=== PATIENT | female | born 1935 | race Caucasian/White ===

== ENCOUNTER 2020-04-27 20:42 | Inpatient (IN) | payer MEDICARE, OTHER ==
[~2020-04-27 20:42] MED LIST: Iopamidol-370 76% 500 ML 1 ML ONE
[2020-04-27 21:36] LABS: Bacteria/HPF 4+ HPF (None Seen); Bilirubin Negative (Negative); Blood, Urine 2+ (Negative); Clarity Extra Turbid (Clear); Glucose, Urine (Dipstick) Normal (Negative); Ketone, Urine Negative (Negative); Leukocyte 500 Leu/uL (Negative); Nitrite Negative (Negative); Protein, Urine (Dipstick) 50 mg/dL (Neg-Trace); RBC/HPF 21-50 HPF (0-3); Specific Gravity, Urine 1.011 (1.002-1.036); Squamous Epithelial 0-3 HPF (0-3); Urobilinogen Normal mg/dL (Less than 2); WBC/HPF Greater than 50 HPF (0-3); pH, Urine 5.5 (5.0-9.0)
[2020-04-27] MEDS ORDERED: cefTRIAXone\\ROCEPHIN 2 GM VIAL ONE (22:04)
[2020-04-27 22:46] LABS: Band 33 % (5-11); Hemoglobin 11.3 g/dL (12.0-16.0); Lymphocytes 6 % (21-51); MDiff Complete? YES; Mean Corpuscular HGB CONC 34.5 g/dL (32.0-36.0); Mean Corpuscular Hemoglobin 31.8 pg (27.0-31.0); Mean Platelet Volume 7.9 fL (7.4-10.4); Monocytes 1 % (0-10); Neutrophil 60 % (42-75); Platelet Count 179 thou/uL (130-400); RBC Distribution Width 12.6 % (11.5-14.5); Red Blood Cell (RBC) Count 3.54 mill/uL (4.20-5.40); White Blood Cell (WBC) Count 17.4 thou/uL (4.8-10.8)
[2020-04-27 22:57] LABS: ALT (SGPT) 22 U/L (8-55); AST (SGOT) 32 U/L (5-34); Albumin 3.5 g/dL (3.4-4.8); Alkaline Phosphatase 122 U/L (40-110); Anion Gap 13 mmol/L (10-20); BUN (Urea Nitrogen) 14 mg/dL (9.8-20.1); Calc. Creatinine Clearance 0 mL/min (70-130); Calcium 8.1 mg/dL (7.8-10.44); Carbon Dioxide 20 mmol/L (23-31); Chloride 109 mmol/L (98-107); Estimated GFR-MDRD 41; Globulin 2.6 g/dL (2.4-3.5); Glucose 113 mg/dL (83-110); Lipase 35 U/L (8-78); Potassium 3.2 mmol/L (3.5-5.1); Protein, Total 6.1 g/dL (6.0-8.3); Sodium 139 mmol/L (136-145)
--- NOTE | 2020-04-27 23:32 | CT ---
CT abdomen and pelvis: 04/27/2020 COMPARISON: 05/25/2015 HISTORY: Left-sided flank pain, pain with urination TECHNIQUE: Axial CT imaging at 5 mm intervals from the lung bases through the pubic symphysis with IV contrast. Coronal and sagittal reformatted imaging obtained. FINDINGS: There is mild increased linear density in bilateral lung bases. No free intraperitoneal air or fluid is seen. The liver is relatively hypodense, suggesting a degree of steatosis. Calcified stones are noted withi n the gallbladder. Splenic granulomata are present. The pancreas and adrenal glands are unremarkable. There is perinephric stranding and hydroureteronephrosis on the left consistent with ob structive uropathy. There is an exophytic cyst emanating from the midpole of the left kidney measuring 3.2 cm. There is a punctate intrarenal calculus within the lower pole of the left kidney. T here is a distal obstructing stone within the left ureter on coronal image 74 measuring 8 mm in craniocaudal dimension. There is a second irregular stone just superior to this also within the dista l left ureter measuring approximately 7 mm on coronal image 76. The right kidney appears grossly unremarkable with no evidence for right-sided obstructive uropathy. Diverticulosis of the sigmoid colon noted with no evidence for diverticulitis. No evidence for bowel inflammatory change or bowel obstruction. There is atherosclerotic calcification of the abdominal aorta and its branches. No abdominal or pelvic lymphadenopathy is seen. Small volume gas noted within the urinary bladder may signify fistulous communication with bowel or prior instrumentation. Review of the osseous structures demonstrates no worrisome lytic or blastic bone lesion. Multilevel l ower lumbar spine degenerative change present. IMPRESSION: Obstructive uropathy on the left secondary to multiple distal left ureteral calculi. Js tional incidental findings as detailed above.
[2020-04-28 01:43] LABS: Lactic Acid 1.3 mmol/L (0.5-2.2)
[2020-04-28] MEDS ORDERED: HYDROcodone/Acetaminophen 5/325 mg Tablet ONE (01:50)
[2020-04-28] MEDS ORDERED: Morphine 2 MG/ML SYRINGE ONE ×2 (02:15→05:25)
[2020-04-28] MEDS ORDERED: Ondansetron PF 4 MG/2 ML Vial ONE ×2 (05:23→05:25)
[2020-04-28] MEDS ORDERED: Acetaminophen 325 MG TAB ONE ×2 (05:24→05:25)
[2020-04-28] MEDS ORDERED: Morphine 2 MG/ML VIAL ONE (05:30)
--- NOTE | 2020-04-28 06:10 | HP ---
REASON FOR ADMISSION: Left flank pain. HISTORY OF PRESENT ILLNESS: This is an 84-year-old female patient, who developed left flank pain 24 hours before her presentation to the emergency room. She describes it as sharp in nature, radiating to her left lower inguinal area. Initially, the pain was mild to moderate, then progressed to severe and it was associated with episodes of chills, decreased urination, and severe burning upon urination. She tried to take hot water baths that initially relaxed her, but then the episodes of chills became intense and she started vomiting, she vomited six times. She presented to the ER and was diagnosed with kidney stone. The patient did have a kidney stone a couple of months before on the right side, but this time, she said that the pain is more intense than the previous episode. PAST MEDICAL HISTORY: 1. Right-sided kidney stones. 2. Lymphoma with bowel involvement, status post multiple surgeries. 3. Paroxysmal atrial fibrillation. 4. High blood pressure. SOCIAL HISTORY: She does not smoke. Does not drink alcohol. FAMILY HISTORY: Reviewed, found to be noncontributory. REVIEW OF SYSTEMS: All systems reviewed except for the above mentioned, found to be negative. ALLERGIES: NO NOTE OF ANY DRUG ALLERGY. PHYSICAL EXAMINATION: GENERAL: Awake, alert, oriented, does not appear in distress. VITAL SIGNS: Her blood pressure is 100/60, heart rate of 100, saturating 98% on room air, and T-max of 99.9. HEENT: Head is nontraumatic and normocephalic. Pupils are equal and reactive. Extraocular movements are intact. Nonicteric sclerae. Well injected conjunctivae. Oral mucosa normal. Nasal mucosa normal. NECK: Supple. No adenopathy. No murmur. Thyroid is not palpable. Trachea is midline. No supraclavicular lymphadenopathy. HEART: S1 and S2, irregular. No murmurs. No gallops. No friction rubs. No displacement of PMI. LUNGS: Clear to auscultation bilaterally. No wheezes, rhonchi, or crackles. ABDOMEN: Bowel sounds are positive. Slight tenderness on palpation of the left lower quadrant area, but overall the abdomen is soft. No lower extremity edema. No cyanosis noted. NEUROLOGIC: Cranial nerves 2 through 12 within normal limits. Normal motor function. No sensory function. Normal reflexes. LABORATORY DATA: Blood work shows a WBC of 17.4, hemoglobin of 11.3, platelets 179, bands of 33. Lactic acid 2.3. Sodium of 139, potassium 3.2, bicarb of 20, creatinine 1.25. CT of the abdomen and pelvis shows kidney stone, pyelonephritis. EKG shows rapid atrial fibrillation. ASSESSMENT AND PLAN: This is an 84-year-old female patient presenting with pyelonephritis secondary to kidney stone. In the emergency room, she was noted to be tachycardic and rapid atrial fibrillation, required to be on Cardizem drip and currently still on it. She told me that every time she has kidney stone, she develops atrial fibrillation. She had her first episode when she was diagnosed with lymphoma. Cardiac: The patient is in rapid atrial fibrillation and currently on telemetry and on Cardizem drip. Her heart rate is acceptably controlled. She feels much better than 24 hours ago. We will hold her antihypertensive agent since she is on Cardizem and her blood pressure is borderline low. Urology: The patient does have kidney stone and pyelonephritis. She is septic. She received a dose of IV Rocephin. We will continue with that. Awaiting results of her urine culture and sensitivity, Urology was consulted and they will see her and most likely insert a stent. She will be on aggressive fluid hydration. We will recheck her labs and replace her electrolytes accordingly. Her Eliquis will be held since she will undergo a procedure. For DVT prophylaxis, she will be on SCDs. I did discuss with her code status, she wishes to be a full code. Job ID: [id number]
[2020-04-28] MEDS ORDERED: Diltiazem 125 MG in Sodium Chloride 0.9% 100 ML IVPB SCH (08:00)
[2020-04-28] MEDS ORDERED: Morphine 2 MG/ML VIAL SLOW IVP PRN (08:08)
[2020-04-28] MEDS ORDERED: Acetaminophen 325 MG TAB PO PRN (08:09)
[2020-04-28 09:15] LABS: Anion Gap 19 mmol/L (10-20); BUN (Urea Nitrogen) 13 mg/dL (9.8-20.1); Calc. Creatinine Clearance 0 mL/min (70-130); Calcium 8.1 mg/dL (7.8-10.44); Carbon Dioxide 16 mmol/L (23-31); Chloride 110 mmol/L (98-107); Estimated GFR-MDRD 35; Glucose 106 mg/dL (83-110); Potassium 3.8 mmol/L (3.5-5.1); Sodium 141 mmol/L (136-145)
[2020-04-28] MEDS ORDERED: Vancomycin 1 GM in Premix Bag 1 BAG IVPB SCH (10:00)
[2020-04-28] MEDS ORDERED: PHENYLEPHRINE-NS 100 MCG/ML 10 ML SYRINGE ONE (10:21)
[2020-04-28] MEDS ORDERED: Lidocaine 1% PF 5 ML VIAL ONE (10:21)
[2020-04-28] MEDS ORDERED: EPHEDRINE 25 MG/5 ML SYRINGE ONE (10:21)
[2020-04-28] MEDS ORDERED: PROPOFOL 200 MG/20 ML VIAL ONE (10:21)
[2020-04-28] MEDS: Sodium Chloride 0.9% 1,000 ML IV SCH ×2 (10:36→16:26)
[2020-04-28] MEDS ORDERED: Amiodarone 450 MG in Dextrose 5% in Water 250 ML IVPB SCH (10:45)
[2020-04-28 10:47] LABS: Hemoglobin 11.7 g/dL (12.0-16.0); Manual Diff?? YES; Mean Corpuscular HGB CONC 32.3 g/dL (32.0-36.0); Mean Corpuscular Hemoglobin 30.5 pg (27.0-31.0); Mean Corpuscular Volume 94.7 fL (78.0-98.0); Mean Platelet Volume 8.4 fL (7.4-10.4); Platelet Count 153 thou/uL (130-400); RBC Distribution Width 13.1 % (11.5-14.5); Red Blood Cell (RBC) Count 3.82 mill/uL (4.20-5.40); White Blood Cell (WBC) Count 8.4 thou/uL (4.8-10.8)
[2020-04-28 10:48] LABS: Band 42 % (5-11); Lymphocytes 8 % (21-51); MDiff Complete? YES; Monocytes 2 % (0-10); Neutrophil 48 % (42-75); Platelet Morphology Comment Appears Adequate
--- NOTE | 2020-04-28 10:53 | PDOC.BPN ---
- Brief Progress Note Encounter Date: 04/28/20 Encounter Time: 08:00 afib w/ RVR HR 110-120s, BP 80s/40s; stopped cardizem, started amiodarone; complicated UTI with obstructive uropathy, started vanc and carli, placed ruiz pending urology evaluation
[2020-04-28 12:23] VITALS: BMI 26.4
[2020-04-28] MEDS: MEROPENEM 1 GM/50 ML 1 GM in Premix Bag 1 BAG IVPB SCH (12:56)
[2020-04-28] MEDS ORDERED: Metoprolol Tartrate 25 MG TAB PO SCH (13:30)
[2020-04-28 13:41] LABS: Bacteria/HPF 1+ HPF (None Seen); Bilirubin Negative (Negative); Blood, Urine 3+ (Negative); Clarity Extra Turbid (Clear); Glucose, Urine (Dipstick) Normal (Negative); Ketone, Urine Negative (Negative); Leukocyte 500 Leu/uL (Negative); Nitrite Negative (Negative); Protein, Urine (Dipstick) 50 mg/dL (Neg-Trace); Specific Gravity, Urine 1.044 (1.002-1.036); Squamous Epithelial None Seen HPF (0-3); Urobilinogen Normal mg/dL (Less than 2); WBC/HPF Greater than 50 HPF (0-3); pH, Urine 5.5 (5.0-9.0)
[2020-04-28] MEDS ORDERED: MEROPENEM 1 GM/50 ML 1 GM in Premix Bag 1 BAG IVPB SCH (14:00)
[2020-04-28] MEDS ORDERED: Meropenem 1 GM in Sodium Chloride 0.9% 100 ML IVPB SCH (14:00)
[2020-04-28] MEDS: Polyethylene Glycol OPTH DROP 15 ML BOT EA EYE SCH ×2 (16:25→22:56)
[2020-04-28 16:44] LABS: SARS-CoV-2 MS2 Positive; SARS-CoV-2 N Gene Negative; SARS-CoV-2 S Gene Negative; SARS-CoV-2 by NAA Not Detected (NotDetected); SARS-CoV-2 orf1ab Negative
[2020-04-28] MEDS ORDERED: Fentanyl 100 MCG/2 ML VIAL ONE (17:13)
[2020-04-28] MEDS ORDERED: Iothalamate Meglumine 60% 50 ML VIAL FS ONE (17:29)
[2020-04-28] MEDS ORDERED: Promethazine HCl 25 MG/ML VIAL IM PRN ×2 (17:31→19:01)
[2020-04-28] MEDS ORDERED: Ondansetron HCl/PF 4 MG/2 ML Vial IVP PRN ×2 (17:31→19:01)
[2020-04-28] MEDS ORDERED: Promethazine HCl 25 MG/ML VIAL SLOW IVP PRN ×2 (17:31→19:01)
--- NOTE | 2020-04-28 18:58 | RAD ---
Retrograde pyelogram: 04/28/2020 HISTORY: Stent placement FINDINGS: Numerous images from a left-sided retrograde pyelogram provided. Images demonstrate placeme nt of a left double-J ureteral stent. Filling defects are seen within the distal ureter on initial imaging consistent with the patient's history of multiple distal left ureteral calculi noted on the CT exam. IMPRESSION: Left retrograde pyelogram as above.
--- NOTE | 2020-04-28 20:00 | CON ---
DATE OF CONSULTATION: 04/28/2020 REASON FOR CONSULTATION: Left ureteral stones, fever. HISTORY OF PRESENT ILLNESS: Ms. Hoang is an 84-year-old female with prior history of stone disease. She presented to [facility] on 04/27/2020, complaining of left-sided flank pain. After admission, she was noted to be febrile. She also admitted to some subjective fever prior to admission. Evaluation in the emergency room included CT scan, which demonstrated distal left ureteral stones with proximal hydroureter and hydronephrosis. She underwent additional evaluation, which included urine and blood testing. Her urinalysis revealed 4+ bacteria and her white blood cell count was 17.4. She was hydrated in the emergency room and IV antibiotics were initiated. In addition, cultures were obtained. She developed abnormal heart rhythm in the emergency room and states that this happens when she gets stones. Her last stone episode was early this year in November and she did undergo ureteroscopy at that time in [place]. PAST MEDICAL HISTORY: 1. Abnormal heart rhythm. 2. Kidney stone disease. 3. Lymphoma involving the bowel. PAST SURGICAL HISTORY: Includes; 1. Abdominal surgery for lymphoma. 2. Right ureteroscopy with laser lithotripsy in [place]. SOCIAL HISTORY: She is a nonsmoker. Denies excessive alcohol use. MEDICATIONS: Please see hospital chart. ALLERGIES: NO KNOWN DRUG ALLERGIES. PHYSICAL EXAMINATION: GENERAL: She is awake, alert, in no distress. HEENT: Normocephalic, atraumatic. NECK: Supple without masses. CHEST: Clear to auscultation. CARDIOVASCULAR: Tachycardia. ABDOMEN: Soft. No peritoneal signs. EXTREMITIES: No edema. IMPRESSION: Ms. Hoang is an 84-year-old female with signs and symptoms of obstructive pyelonephritis. I have recommended ureteral stent placement to be done if this is possible. She is on IV antibiotics and her blood and urine are undergoing culture analysis. I have discussed the procedure with the patient. She understands the procedure, potential limitations, alternatives, and complications. She does wish to proceed. PLAN: Cystoscopy, left double-J stent placement. Job ID: [id number]
--- NOTE | 2020-04-28 20:28 | OP ---
DATE OF PROCEDURE: 04/28/2020 PREOPERATIVE DIAGNOSES: Left ureteral stones, urinary tract infection. POSTOPERATIVE DIAGNOSES: Left ureteral stones, urinary tract infection. PROCEDURES PERFORMED: Cystoscopy, left ureteroscopy, left ureteral stent placement. ANESTHESIA: General. INDICATIONS: Ms. Shawnee Hoang is an 84-year-old female with prior history of stone disease. She presented to the emergency room with fever, chills, left flank pain, and urinalysis demonstrating bacteria. She was admitted and given IV antibiotic therapy. CT scan demonstrated distal left ureteral stones. She was brought to the operating room for cystoscopy and stent placement. DESCRIPTION OF PROCEDURE: The patient was given general anesthesia and IV antibiotics had been initiated on the time of admission. She was sterilely prepped and draped in the lithotomy position. Cystoscope was passed into the bladder. The left ureteral orifice was identified, and with some difficulty, a guidewire was passed cephalad under fluoroscopic control. A rigid ureteroscope was then used to ensure that the guidewire was in good position, and a wire was passed through the ureteroscope, ensuring that it was within the lumen of the left ureter. Retrograde pyelography confirmed good positioning of the guidewire. The ureteroscope was removed. Then a 4.8 x 24 double-J stent was passed over the guidewire and coiled in the left renal pelvis and in the bladder as determined fluoroscopically and cystoscopically. The bladder was drained. Matthews catheter was placed, she had one in when she was brought to the operating room. She tolerated the procedure well. She was transported from the operative room to recovery room in stable condition. COMPLICATION: None. ESTIMATED BLOOD LOSS: Minimal. Job ID: [id number]
[2020-04-28] MEDS ORDERED: cefTRIAXone\\ROCEPHIN 1 GM in Sodium Chloride 0.9% 100 ML IVPB SCH (22:00)
[2020-04-28] MEDS: Simvastatin 5 MG TAB PO SCH (22:55)
[2020-04-28] MEDS: Apixaban 5 MG TAB PO SCH ×2 (22:55→23:21)
[2020-04-28] MEDS: Diphenoxylate HCl/Atropine Tablet PO SCH (22:55)
[2020-04-28] MEDS: Metoprolol Tartrate 25 MG TAB PO SCH (22:55)
[2020-04-28] MEDS: Ondansetron PF 4 MG/2 ML Vial IVP PRN (23:52)
[2020-04-29] MEDS: MEROPENEM 1 GM/50 ML 1 GM in Premix Bag 1 BAG IVPB SCH (00:18)
[2020-04-29 04:34] LABS: Anion Gap 14 mmol/L (10-20); BUN (Urea Nitrogen) 18 mg/dL (9.8-20.1); Calc. Creatinine Clearance 41 mL/min (70-130); Carbon Dioxide 18 mmol/L (23-31); Chloride 111 mmol/L (98-107); Estimated GFR-MDRD 45; Potassium 3.5 mmol/L (3.5-5.1); Sodium 139 mmol/L (136-145)
[2020-04-29 04:35] LABS: Calcium 7.3 mg/dL (7.8-10.44); Glucose 112 mg/dL (83-110); Magnesium 1.4 mg/dL (1.6-2.6)
[2020-04-29] MEDS: Sodium Chloride 0.9% 1,000 ML IV SCH ×2 (06:37→19:15)
[2020-04-29] MEDS: Fish Oil 1,000 MG CAP PO SCH (10:13)
[2020-04-29] MEDS: Metoprolol Tartrate 25 MG TAB PO SCH ×2 (10:13→21:30)
[2020-04-29] MEDS: Diphenoxylate HCl/Atropine Tablet PO SCH ×2 (10:14→21:31)
[2020-04-29] MEDS: Apixaban 5 MG TAB PO SCH ×2 (10:14→21:31)
[2020-04-29] MEDS: Aspirin 81 mg Enteric Coated Tablet PO SCH (10:14)
[2020-04-29] MEDS: Polyethylene Glycol OPTH DROP 15 ML BOT EA EYE SCH ×3 (10:15→21:31)
[2020-04-29] MEDS: cefTRIAXone\\ROCEPHIN 1 GM in Sodium Chloride 0.9% 100 ML IVPB SCH (10:27)
[2020-04-29 10:56] LABS: Vancomycin, Random 5.7 ug/mL (See Comment)
[2020-04-29] MEDS ORDERED: Vancomycin 1 GM in Premix Bag 1 BAG IVPB SCH (11:00)
[2020-04-29] MEDS: Simethicone Chewable 80 MG TAB PO PRN (17:20)
--- NOTE | 2020-04-29 18:50 | PDOC.HOSPP ---
- Subjective Encounter Date: 04/29/20 Encounter Time: 09:00 Subjective: no overnight events. POD 1 s/p left ureteral stent placement, well tolerated. 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 otherwise no complaints. - Objective Vital Signs & Weight: Vital Signs (12 hours) Temp Pulse Resp BP BP Pulse Ox 04/29/20 15:52 96 04/29/20 15:32 98.3 F 99 20 135/65 96 04/29/20 11:58 97.8 F 91 17 130/73 95 04/29/20 10:03 99.5 F 103 H 16 125/59 L 96 Weight Weight 154 lb I&O: 04/28/20 04/29/20 04/30/20 06:59 06:59 06:59 Intake Total 1460 720 Output Total 400 Balance 1060 720 Result Diagrams: 04/28/20 05:21 04/29/20 03:42 Hospitalist ROS - Review of Systems Constitutional: denies: chills, sweats Respiratory: denies: cough, shortness of breath Cardiovascular: denies: chest pain, palpitations, orthopnea Gastrointestinal: reports: abdominal pain. denies: nausea, vomiting, diarrhea, melena, hematochezia - Medication Medications: Active Medications Generic Name Dose Route Start Last Admin Trade Name Albanq PRN Reason Stop Dose Admin Apixaban 5 mg 04/28/20 21:00 04/29/20 10:14 Apixaban 5 Mg Tab PO 5 mg BID FRAN Administration Aspirin 81 mg 04/29/20 09:00 04/29/20 10:14 Aspirin 81 Mg Enteric Coated Tablet PO 81 mg DAILY FRAN Administration Diphenoxylate HCl/Atropine 1 tab 04/28/20 21:00 04/29/20 10:14 Diphenoxylate Hcl/Atropine Tablet PO 1 tab BID FRAN Administration Fish Oil 2,000 mg 04/29/20 09:00 04/29/20 10:13 Fish Oil 1,000 Mg Cap PO 2,000 mg DAILY FRAN Administration Sodium Chloride 1,000 mls @ 100 mls/hr 04/28/20 08:15 04/29/20 06:37 Normal Saline 0.9% IV 1,000 mls .Q10H FRAN Administration Ceftriaxone Sodium 1 gm/ 100 mls @ 200 mls/hr 04/29/20 09:00 04/29/20 10:27 Sodium Chloride IVPB 100 mls Q24HR FRAN Administration Metoprolol Tartrate 12.5 mg 04/28/20 21:00 04/29/20 10:13 Metoprolol Tartrate 25 Mg Tab PO 12.5 mg BID FRAN Administration Ondansetron HCl 4 mg 04/28/20 08:08 04/28/20 23:52 Ondansetron Pf 4 Mg/2 Ml Vial IVP 4 mg Q6H PRN Administration Nausea/Vomiting Propylene Glycol 2 drop 04/28/20 15:00 04/29/20 16:08 Polyethylene Glycol Opth Drop 15 Ml Bot EA EYE 2 drop TID FRAN Administration Simethicone 40 mg 04/29/20 16:13 04/29/20 17:20 Simethicone Chewable 80 Mg Tab PO 40 mg PCHS PRN Administration Gas Pain Simvastatin 10 mg 04/28/20 21:00 04/28/20 22:55 Simvastatin 5 Mg Tab PO 10 mg HS FRAN Administration Sodium Chloride 10 ml 04/28/20 09:00 04/29/20 10:14 Flush - Normal Saline 10 Ml Syringe IVF 10 ml Q12HR FRAN Administration - Exam General Appearance: NAD, awake alert Neck: no JVD Heart: RRR, no murmur, no gallops, no rubs Respiratory: CTAB, no wheezes, no rales, no ronchi Gastrointestinal: soft, non-distended, normal bowel sounds Gastrointestinal - other findings: midlly diffusely tender, hyperactive bowel sounds Psychiatric: normal affect, normal behavior, A&O x 3 Hosp A/P - Plan #complicated E.coli UTI #E. coli bacteremia #L ureteral stones -s/p left stent placement, well tolerated -continue ceftriaxone #abdominal pain -low carbohydrate diet -simethicone PRN #p. afib w/ RVR converted to sinus (04/28) continue apixaban continue metoprolol Full code ELOS: 1 night
[2020-04-29] MEDS: Ondansetron PF 4 MG/2 ML Vial IVP PRN (19:17)
[2020-04-29] MEDS: Simvastatin 5 MG TAB PO SCH (21:31)
[2020-04-30] MEDS: Sodium Chloride 0.9% 1,000 ML IV SCH (04:08)
[2020-04-30 05:53] LABS: Anion Gap 12 mmol/L (10-20); BUN (Urea Nitrogen) 14 mg/dL (9.8-20.1); Calc. Creatinine Clearance 61 mL/min (70-130); Calcium 7.4 mg/dL (7.8-10.44); Carbon Dioxide 16 mmol/L (23-31); Chloride 112 mmol/L (98-107); Estimated GFR-MDRD 71; Glucose 110 mg/dL (83-110); Magnesium 1.5 mg/dL (1.6-2.6); Potassium 3.4 mmol/L (3.5-5.1); Sodium 137 mmol/L (136-145)
[2020-04-30 06:02] LABS: Band 17 % (5-11); Eosinophils 2 % (0-10); Hemoglobin 9.6 g/dL (12.0-16.0); Lymphocytes 5 % (21-51); MDiff Complete? YES; Mean Corpuscular HGB CONC 31.5 g/dL (32.0-36.0); Mean Corpuscular Hemoglobin 29.8 pg (27.0-31.0); Mean Corpuscular Volume 94.4 fL (78.0-98.0); Mean Platelet Volume 9.6 fL (7.4-10.4); Monocytes 4 % (0-10); Neutrophil 72 % (42-75); Platelet Count 114 thou/uL (130-400); Platelet Morphology Comment Appears Decreased; RBC Distribution Width 13.5 % (11.5-14.5); Red Blood Cell (RBC) Count 3.23 mill/uL (4.20-5.40); White Blood Cell (WBC) Count 18.7 thou/uL (4.8-10.8)
[2020-04-30] MEDS: Aspirin 81 mg Enteric Coated Tablet PO SCH (08:28)
[2020-04-30] MEDS: Fish Oil 1,000 MG CAP PO SCH (08:28)
[2020-04-30] MEDS: Metoprolol Tartrate 25 MG TAB PO SCH ×2 (08:29→21:32)
[2020-04-30] MEDS: cefTRIAXone\\ROCEPHIN 1 GM in Sodium Chloride 0.9% 100 ML IVPB SCH (08:29)
[2020-04-30] MEDS: Diphenoxylate HCl/Atropine Tablet PO SCH ×2 (08:29→21:32)
[2020-04-30] MEDS: Polyethylene Glycol OPTH DROP 15 ML BOT EA EYE SCH ×3 (08:30→21:33)
[2020-04-30] MEDS: Apixaban 5 MG TAB PO SCH ×2 (08:30→21:31)
[2020-04-30] MEDS: Simethicone Chewable 80 MG TAB PO PRN (08:40)
[2020-04-30] MEDS ORDERED: Metoprolol Tartrate 5 MG/5 ML VIAL IVP SCH ×2 (09:15)
--- NOTE | 2020-04-30 09:17 | PDOC.HOSPP ---
- Subjective Encounter Date: 04/30/20 Encounter Time: 08:00 Subjective: overnight, went back to afib w/RVR. this morning, complaining of shortness of breath, unchanged compared to yesterday. Abdominal pain somewhat improved - Objective Vital Signs & Weight: Vital Signs (12 hours) Temp Pulse Resp BP Pulse Ox 04/30/20 07:52 98.7 F 144 H 18 149/88 H 98 04/30/20 04:00 98.2 F 109 H 16 134/72 93 L 04/30/20 00:00 98.2 F 123 H 16 126/73 95 Weight Weight 154 lb I&O: 04/29/20 04/30/20 05/01/20 06:59 06:59 06:59 Intake Total 1460 3316 Output Total 400 1075 Balance 1060 2241 Result Diagrams: 04/30/20 05:12 04/30/20 05:12 Hospitalist ROS - Review of Systems Constitutional: denies: chills, sweats Respiratory: reports: shortness of breath. denies: cough, dry, pleuritic pain, sputum, wheezing Cardiovascular: reports: orthopnea. denies: chest pain, palpitations, paroxysma l noc. dyspnea, edema, light headedness Gastrointestinal: reports: abdominal pain, constipation. denies: nausea, vomiting, diarrhea, melena, hematochezia - Medication Medications: Active Medications Generic Name Dose Route Start Last Admin Trade Name Freq PRN Reason Stop Dose Admin Albuterol/Ipratropium 3 ml 04/29/20 15:58 04/29/20 19:18 Ipratropium/Albuterol Sulfate 3 Ml Neb NEB 3 ml [id number] PRN Administration SOB &/or Wheezing Apixaban 5 mg 04/28/20 21:00 04/30/20 08:30 Apixaban 5 Mg Tab PO 5 mg BID FRAN Administration Aspirin 81 mg 04/29/20 09:00 04/30/20 08:28 Aspirin 81 Mg Enteric Coated Tablet PO 81 mg DAILY FRAN Administration Diphenoxylate HCl/Atropine 1 tab 04/28/20 21:00 04/30/20 08:29 Diphenoxylate Hcl/Atropine Tablet PO 1 tab BID FRAN Administration Fish Oil 2,000 mg 04/29/20 09:00 04/30/20 08:28 Fish Oil 1,000 Mg Cap PO 2,000 mg DAILY FRAN Administration Sodium Chloride 1,000 mls @ 100 mls/hr 04/28/20 08:15 04/30/20 04:08 Normal Saline 0.9% IV 1,000 mls .Q10H FRAN Administration Ceftriaxone Sodium 1 gm/ 100 mls @ 200 mls/hr 04/29/20 09:00 04/30/20 08:29 Sodium Chloride IVPB 100 mls Q24HR FRAN Administration Ondansetron HCl 4 mg 04/28/20 08:08 04/29/20 19:17 Ondansetron Pf 4 Mg/2 Ml Vial IVP 4 mg Q6H PRN Administration Nausea/Vomiting Propylene Glycol 2 drop 04/28/20 15:00 04/30/20 08:30 Polyethylene Glycol Opth Drop 15 Ml Bot EA EYE 2 drop TID FRAN Administration Simethicone 40 mg 04/29/20 16:13 04/30/20 08:40 Simethicone Chewable 80 Mg Tab PO 40 mg PCHS PRN Administration Gas Pain Simvastatin 10 mg 04/28/20 21:00 04/29/20 21:31 Simvastatin 5 Mg Tab PO 10 mg HS FRAN Administration Sodium Chloride 10 ml 04/28/20 09:00 04/30/20 08:33 Flush - Normal Saline 10 Ml Syringe IVF 10 ml Q12HR FRAN Administration - Exam General Appearance: NAD, awake alert Eye: PERRL Neck: no JVD Heart: irregular Heart - other findings: HR 125-130s Respiratory: CTAB, no wheezes, no ronchi Respiratory - other findings: bibasilar inspiratory rales Gastrointestinal: soft, non-distended, normal bowel sounds Gastrointestinal - other findings: midly diffusely tender; per patient chronic Psychiatric: normal affect, normal behavior, A&O x 3 Hosp A/P - Plan #complicated E.coli UTI #E. coli bacteremia #L ureteral stones -s/p left stent placement, well tolerated -continue ceftriaxone #p. afib w/ RVR converted to sinus (04/28), then back to afib w/ RVR 04/30 increased metoprolol maintenance metoprolol 2.5mg IVP transfer back to [facility] #abdominal pain #constipation -low carbohydrate diet -simethicone PRN -bisacodyl CO PRN constipation Full code ELOS: 1 night
[2020-04-30] MEDS ORDERED: Metoprolol Tartrate 25 MG TAB PO SCH (10:15)
--- NOTE | 2020-04-30 13:39 | RAD ---
Portable frontal chest radiograph: 04/30/2020 COMPARISON: 05/21/2006 HISTORY: Shortness of breath FINDINGS: There is extensive increased linear interstitial density bilaterally with a perihilar/bibas ilar predominance. These findings have progressed since the 2005 study. There is superimposed dense opacity in the left base which may signify partial consolidation/collapse of the left lower lobe and/ or small volume left pleural effusion. There is hazy density in the right lung base suggesting mild alveolitis. There is a right-sided Port-A-Cath. IMPRESSION: Interstitial opacity in the perihilar regions and both lung bases with bibasilar parenchy mal opacity, left greater than right, and probable associated left pleural effusion. Findings are most consistent with pulmonary edema. Infectious pneumonitis or aspiration cannot be excluded. Recomm end short-term follow-up imaging of the chest following treatment to treatment resolution.
[2020-04-30] MEDS: Diltiazem 125 MG in Sodium Chloride 0.9% 100 ML IVPB SCH (14:34)
[2020-04-30] MEDS: Bisacodyl 10 MG SUPP PR SCH ×2 (16:34→18:22)
[2020-04-30] MEDS: Simvastatin 5 MG TAB PO SCH (21:31)
[2020-05-01] MEDS: Bisacodyl 10 MG SUPP PR SCH ×3 (01:43→15:09)
[2020-05-01 05:27] LABS: #Basophils 0.1 thou/uL (0.0-0.2); #Eosinphils 0.4 thou/uL (0.0-0.7); #Lymphocytes 1.9 thou/uL (1.20-3.40); #Monocytes 1.6 thou/uL (0.11-0.59); #Neutrophils 12.7 thou/uL (1.40-6.50); %Basophils 0.5 % (0.0-1.0); %Eosinophils 2.7 % (0.0-10.0); %Lymphocytes 11.2 % (21.0-51.0); %Monocytes 9.3 % (0.0-10.0); %Neutrophils 76.3 % (42.0-75.0); Hemoglobin 10.1 g/dL (12.0-16.0); Mean Corpuscular HGB CONC 31.7 g/dL (32.0-36.0); Mean Corpuscular Hemoglobin 29.9 pg (27.0-31.0); Mean Corpuscular Volume 94.5 fL (78.0-98.0); Mean Platelet Volume 9.3 fL (7.4-10.4); Platelet Count 136 thou/uL (130-400); RBC Distribution Width 13.4 % (11.5-14.5); Red Blood Cell (RBC) Count 3.36 mill/uL (4.20-5.40); White Blood Cell (WBC) Count 16.6 thou/uL (4.8-10.8)
[2020-05-01 05:33] LABS: Anion Gap 14 mmol/L (10-20); BUN (Urea Nitrogen) 11 mg/dL (9.8-20.1); Calc. Creatinine Clearance 63 mL/min (70-130); Carbon Dioxide 19 mmol/L (23-31); Chloride 111 mmol/L (98-107); Estimated GFR-MDRD 73; Glucose 110 mg/dL (83-110); Magnesium 1.7 mg/dL (1.6-2.6); Potassium 4.1 mmol/L (3.5-5.1); Sodium 140 mmol/L (136-145)
[2020-05-01] MEDS: Furosemide 20 MG/2 ML VIAL SLOW IVP SCH ×2 (06:04→14:59)
[2020-05-01] MEDS: Diphenoxylate HCl/Atropine Tablet PO SCH ×2 (08:40→21:29)
[2020-05-01] MEDS: cefTRIAXone\\ROCEPHIN 1 GM in Sodium Chloride 0.9% 100 ML IVPB SCH (08:51)
[2020-05-01] MEDS: Fish Oil 1,000 MG CAP PO SCH (08:51)
[2020-05-01] MEDS: Metoprolol Tartrate 25 MG TAB PO SCH ×2 (08:51→21:30)
[2020-05-01] MEDS: Aspirin 81 mg Enteric Coated Tablet PO SCH (08:51)
[2020-05-01] MEDS: Apixaban 5 MG TAB PO SCH ×2 (08:51→21:29)
[2020-05-01] MEDS: Polyethylene Glycol OPTH DROP 15 ML BOT EA EYE SCH ×3 (08:52→21:33)
[2020-05-01] MEDS: Diltiazem 125 MG in Sodium Chloride 0.9% 100 ML IVPB SCH (14:59)
--- NOTE | 2020-05-01 16:39 | PDOC.HOSPP ---
- Subjective Encounter Date: 05/01/20 Subjective: The patient with Tori. rickey currently rate controlled on diltiazem. - Objective Vital Signs & Weight: Vital Signs (12 hours) Temp Pulse Pulse Resp BP BP BP 05/01/20 11:30 98.3 F 101 H 18 134/71 05/01/20 11:09 96 141/73 H 134/71 05/01/20 08:30 98.1 F 106 H 14 149/64 H 05/01/20 08:00 05/01/20 05:02 94 20 Pulse Ox Pulse Ox 05/01/20 11:30 98 05/01/20 11:09 93 L 05/01/20 08:30 94 L 05/01/20 08:00 94 L 05/01/20 05:02 96 Weight Weight 154 lb I&O: 04/30/20 05/01/20 05/02/20 06:59 06:59 06:59 Intake Total 3316 1770 Output Total 1075 1231 Balance 2241 539 Result Diagrams: 05/01/20 04:27 05/01/20 04:27 Additional Labs: Accuchecks 05/01/20 05/01/20 04/30/20 10:46 05:40 20:22 POC Glucose 115 H 105 H 120 H Hospitalist ROS - Medication Medications: Active Medications Generic Name Dose Route Start Last Admin Trade Name Freq PRN Reason Stop Dose Admin Albuterol/Ipratropium 3 ml 04/29/20 15:58 05/01/20 05:02 Ipratropium/Albuterol Sulfate 3 Ml Neb NEB 3 ml [id number] PRN Administration SOB &/or Wheezing Apixaban 5 mg 04/28/20 21:00 05/01/20 08:51 Apixaban 5 Mg Tab PO 5 mg BID FRAN Administration Aspirin 81 mg 04/29/20 09:00 05/01/20 08:51 Aspirin 81 Mg Enteric Coated Tablet PO 81 mg DAILY FRAN Administration Bisacodyl 10 mg 04/30/20 09:30 05/01/20 15:09 Bisacodyl 10 Mg Supp VT Not Given Q8H FRNA Diphenoxylate HCl/Atropine 1 tab 04/28/20 21:00 05/01/20 08:40 Diphenoxylate Hcl/Atropine Tablet PO Not Given BID FRAN Fish Oil 2,000 mg 04/29/20 09:00 05/01/20 08:51 Fish Oil 1,000 Mg Cap PO 2,000 mg DAILY FRAN Administration Furosemide 10 mg 05/01/20 06:00 05/01/20 14:59 Furosemide 20 Mg/2 Ml Vial SLOW IVP 10 mg 0600,1400 FRAN Administration Ceftriaxone Sodium 1 gm/ 100 mls @ 200 mls/hr 04/29/20 09:00 05/01/20 08:51 Sodium Chloride IVPB 100 mls Q24HR FRAN Administration Diltiazem HCl 125 mg/ Sodium 125 mls @ 5 mls/hr 04/30/20 13:30 05/01/20 14:59 Chloride IVPB 125 mls INF FRAN Administration Protocol 5 MG/HR Metoprolol Tartrate 25 mg 04/30/20 21:00 05/01/20 08:51 Metoprolol Tartrate 25 Mg Tab PO 25 mg BID FRAN Administration Ondansetron HCl 4 mg 04/28/20 08:08 04/29/20 19:17 Ondansetron Pf 4 Mg/2 Ml Vial IVP 4 mg Q6H PRN Administration Nausea/Vomiting Propylene Glycol 2 drop 04/28/20 15:00 05/01/20 14:59 Polyethylene Glycol Opth Drop 15 Ml Bot EA EYE 2 drp TID FRAN Administration Simethicone 40 mg 04/29/20 16:13 04/30/20 08:40 Simethicone Chewable 80 Mg Tab PO 40 mg PCHS PRN Administration Gas Pain Simvastatin 10 mg 04/28/20 21:00 04/30/20 21:31 Simvastatin 5 Mg Tab PO 10 mg HS FRAN Administration Sodium Chloride 10 ml 04/28/20 09:00 05/01/20 08:52 Flush - Normal Saline 10 Ml Syringe IVF 10 ml Q12HR FRAN Administration - Exam General Appearance: awake alert Neck: supple, no JVD Heart: irregular Respiratory: normal chest expansion, no tachypnea Neurological: cranial nerve grossly intact, no focal deficits Hosp A/P (1) Complicated UTI (urinary tract infection) Code(s): N39.0 - URINARY TRACT INFECTION, SITE NOT SPECIFIED Status: Acute (2) Sepsis Code(s): A41.9 - SEPSIS, UNSPECIFIED ORGANISM Status: Acute (3) Atrial fibrillation with rapid ventricular response Code(s): I48.91 - UNSPECIFIED ATRIAL FIBRILLATION Status: Acute (4) Left ureteral stone Code(s): N20.1 - CALCULUS OF URETER Status: Acute - Plan Sepsis due to complicated UTI caused by E. coli. Plan continue IV ceftriaxone. UTI complicated by ureteric stone status post placement. Leukocytosis improving. A. fib with RVR controlled on diltiazem drip. We will transition the patient to oral diltiazem 60 mg 3 times daily. Apixaban for primary embolic CVA prophylaxis.
[2020-05-01] MEDS ORDERED: Loratadine 10 MG TAB PO SCH (16:45)
[2020-05-01] MEDS: Simvastatin 5 MG TAB PO SCH (21:31)
[2020-05-02] MEDS: Bisacodyl 10 MG SUPP PR SCH ×3 (02:16→17:39)
[2020-05-02 04:06] LABS: #Basophils 0.1 thou/uL (0.0-0.2); #Eosinphils 0.8 thou/uL (0.0-0.7); #Lymphocytes 2.1 thou/uL (1.20-3.40); #Monocytes 1.4 thou/uL (0.11-0.59); #Neutrophils 9.2 thou/uL (1.40-6.50); %Basophils 0.7 % (0.0-1.0); %Eosinophils 5.8 % (0.0-10.0); %Lymphocytes 15.2 % (21.0-51.0); %Monocytes 10.4 % (0.0-10.0); Hemoglobin 9.8 g/dL (12.0-16.0); Mean Corpuscular HGB CONC 32.5 g/dL (32.0-36.0); Mean Corpuscular Hemoglobin 30.6 pg (27.0-31.0); Mean Platelet Volume 9.4 fL (7.4-10.4); Platelet Count 164 thou/uL (130-400); RBC Distribution Width 13.3 % (11.5-14.5); White Blood Cell (WBC) Count 13.5 thou/uL (4.8-10.8)
[2020-05-02 04:26] LABS: Anion Gap 11 mmol/L (10-20); BUN (Urea Nitrogen) 11 mg/dL (9.8-20.1); Calc. Creatinine Clearance 66 mL/min (70-130); Calcium 7.8 mg/dL (7.8-10.44); Carbon Dioxide 23 mmol/L (23-31); Chloride 109 mmol/L (98-107); Estimated GFR-MDRD 76; Glucose 105 mg/dL (83-110); Potassium 3.4 mmol/L (3.5-5.1); Sodium 140 mmol/L (136-145)
[2020-05-02] MEDS: Furosemide 20 MG/2 ML VIAL SLOW IVP SCH ×2 (06:12→14:36)
[2020-05-02] MEDS: Diphenoxylate HCl/Atropine Tablet PO SCH ×3 (08:00→20:11)
[2020-05-02] MEDS: Fish Oil 1,000 MG CAP PO SCH (08:04)
[2020-05-02] MEDS: Aspirin 81 mg Enteric Coated Tablet PO SCH (08:04)
[2020-05-02] MEDS: Apixaban 5 MG TAB PO SCH ×2 (08:04→20:11)
[2020-05-02] MEDS: Loratadine 10 MG TAB PO SCH (08:05)
[2020-05-02] MEDS: Metoprolol Tartrate 25 MG TAB PO SCH ×2 (08:05→20:11)
[2020-05-02] MEDS: cefTRIAXone\\ROCEPHIN 1 GM in Sodium Chloride 0.9% 100 ML IVPB SCH (08:05)
[2020-05-02] MEDS: Polyethylene Glycol OPTH DROP 15 ML BOT EA EYE SCH ×3 (08:06→20:13)
[2020-05-02] MEDS ORDERED: Potassium Chloride 20 MEQ TAB PO SCH (09:15)
--- NOTE | 2020-05-02 14:42 | PDOC.HOSPP ---
- Subjective Encounter Date: 05/02/20 Subjective: The patient is feeling better. - Objective Vital Signs & Weight: Vital Signs (12 hours) Temp Pulse Resp BP Pulse Ox 05/02/20 07:08 98.4 F 102 H 16 139/64 98 05/02/20 03:13 98.1 F 84 21 H 137/67 96 Weight Weight 154 lb I&O: 05/01/20 05/02/20 05/03/20 06:59 06:59 06:59 Intake Total 1770 1180 Output Total 1231 2900 Balance 539 -1720 Result Diagrams: 05/02/20 03:29 05/02/20 03:28 Hospitalist ROS - Medication Medications: Active Medications Generic Name Dose Route Start Last Admin Trade Name Freq PRN Reason Stop Dose Admin Albuterol/Ipratropium 3 ml 04/29/20 15:58 05/01/20 21:47 Ipratropium/Albuterol Sulfate 3 Ml Neb NEB 3 ml [id number] PRN Administration SOB &/or Wheezing Apixaban 5 mg 04/28/20 21:00 05/02/20 08:04 Apixaban 5 Mg Tab PO 5 mg BID FRAN Administration Aspirin 81 mg 04/29/20 09:00 05/02/20 08:04 Aspirin 81 Mg Enteric Coated Tablet PO 81 mg DAILY FRAN Administration Bisacodyl 10 mg 04/30/20 09:30 05/02/20 08:09 Bisacodyl 10 Mg Supp SC Not Given Q8H FRAN Diltiazem HCl 90 mg 05/02/20 11:30 05/02/20 11:58 Diltiazem Hcl 30 Mg Tablet PO 90 mg ACHS FRAN Administration Diphenoxylate HCl/Atropine 1 tab 04/28/20 21:00 05/02/20 09:39 Diphenoxylate Hcl/Atropine Tablet PO 1 tab BID FRAN Administration Fish Oil 2,000 mg 04/29/20 09:00 05/02/20 08:04 Fish Oil 1,000 Mg Cap PO 2,000 mg DAILY FRAN Administration Furosemide 10 mg 05/01/20 06:00 05/02/20 14:36 Furosemide 20 Mg/2 Ml Vial SLOW IVP 10 mg 0600,1400 FRAN Administration Ceftriaxone Sodium 1 gm/ 100 mls @ 200 mls/hr 04/29/20 09:00 05/02/20 08:05 Sodium Chloride IVPB 100 mls Q24HR FRAN Administration Diltiazem HCl 125 mg/ Sodium 125 mls @ 5 mls/hr 04/30/20 13:30 05/01/20 14:59 Chloride IVPB 125 mls INF FRAN Administration Protocol 5 MG/HR Loratadine 10 mg 05/02/20 09:00 05/02/20 08:05 Loratadine 10 Mg Tab PO 10 mg DAILY FRAN Administration Metoprolol Tartrate 25 mg 04/30/20 21:00 05/02/20 08:05 Metoprolol Tartrate 25 Mg Tab PO 25 mg BID FRAN Administration Ondansetron HCl 4 mg 04/28/20 08:08 04/29/20 19:17 Ondansetron Pf 4 Mg/2 Ml Vial IVP 4 mg Q6H PRN Administration Nausea/Vomiting Propylene Glycol 2 drop 04/28/20 15:00 05/02/20 14:36 Polyethylene Glycol Opth Drop 15 Ml Bot EA EYE 2 drp TID FRAN Administration Simethicone 40 mg 04/29/20 16:13 04/30/20 08:40 Simethicone Chewable 80 Mg Tab PO 40 mg PCHS PRN Administration Gas Pain Simvastatin 10 mg 04/28/20 21:00 05/01/20 21:31 Simvastatin 5 Mg Tab PO 10 mg HS FRAN Administration Sodium Chloride 10 ml 04/28/20 09:00 05/02/20 08:06 Flush - Normal Saline 10 Ml Syringe IVF 10 ml Q12HR FRAN Administration - Exam General Appearance: awake alert Neck: supple, no JVD Respiratory: normal chest expansion, no tachypnea Extremities: no cyanosis, no clubbing Neurological: cranial nerve grossly intact, no focal deficits Hosp A/P (1) Complicated UTI (urinary tract infection) Code(s): N39.0 - URINARY TRACT INFECTION, SITE NOT SPECIFIED Status: Acute (2) Sepsis Code(s): A41.9 - SEPSIS, UNSPECIFIED ORGANISM Status: Acute (3) Atrial fibrillation with rapid ventricular response Code(s): I48.91 - UNSPECIFIED ATRIAL FIBRILLATION Status: Acute (4) Left ureteral stone Code(s): N20.1 - CALCULUS OF URETER Status: Acute - Plan Sepsis due to complicated UTI caused by E. coli. Plan continue IV ceftriaxone. UTI complicated by ureteric stone status post placement. Sepsis improving. A. fib with RVR now rate controlled on oral diltiazem. Apixaban for anticoagulation. PT and OT.
[2020-05-02] MEDS: Simvastatin 5 MG TAB PO SCH (20:12)
[2020-05-03] MEDS: Bisacodyl 10 MG SUPP PR SCH ×3 (01:09→17:11)
[2020-05-03 04:39] LABS: Anion Gap 13 mmol/L (10-20); BUN (Urea Nitrogen) 12 mg/dL (9.8-20.1); Calc. Creatinine Clearance 64 mL/min (70-130); Calcium 7.7 mg/dL (7.8-10.44); Carbon Dioxide 25 mmol/L (23-31); Chloride 107 mmol/L (98-107); Estimated GFR-MDRD 74; Glucose 110 mg/dL (83-110); Potassium 3.4 mmol/L (3.5-5.1); Sodium 142 mmol/L (136-145)
[2020-05-03 05:16] LABS: Band 14 % (5-11); Eosinophils 5 % (0-10); Hemoglobin 8.8 g/dL (12.0-16.0); Lymphocytes 22 % (21-51); MDiff Complete? YES; Mean Corpuscular HGB CONC 32.6 g/dL (32.0-36.0); Mean Corpuscular Volume 92.3 fL (78.0-98.0); Monocytes 13 % (0-10); Myelocyte 3 % (0-0); Neutrophil 43 % (42-75); Platelet Count 207 thou/uL (130-400); RBC Distribution Width 13.2 % (11.5-14.5); Red Blood Cell (RBC) Count 2.92 mill/uL (4.20-5.40); White Blood Cell (WBC) Count 11.9 thou/uL (4.8-10.8)
[2020-05-03] MEDS: Furosemide 20 MG/2 ML VIAL SLOW IVP SCH ×2 (05:55→14:03)
[2020-05-03] MEDS: Aspirin 81 mg Enteric Coated Tablet PO SCH (09:15)
[2020-05-03] MEDS: Apixaban 5 MG TAB PO SCH (09:15)
[2020-05-03] MEDS: Loratadine 10 MG TAB PO SCH (09:16)
[2020-05-03] MEDS: Metoprolol Tartrate 25 MG TAB PO SCH (09:16)
[2020-05-03] MEDS: Diphenoxylate HCl/Atropine Tablet PO SCH (09:16)
[2020-05-03] MEDS: Fish Oil 1,000 MG CAP PO SCH (09:16)
[2020-05-03] MEDS: cefTRIAXone\\ROCEPHIN 1 GM in Sodium Chloride 0.9% 100 ML IVPB SCH (09:19)
[2020-05-03] MEDS: Polyethylene Glycol OPTH DROP 15 ML BOT EA EYE SCH ×2 (09:23→14:04)
[2020-05-03] MEDS ORDERED: Potassium Chloride 20 MEQ TAB PO SCH (10:15)
[2020-05-03 16:22] VITALS: TEMP 98.7
[2020-05-03 17:08] VITALS: BP 142/65
--- NOTE | 2020-05-04 01:32 | DIS ---
DATE OF ADMISSION: 04/28/2020 DATE OF DISCHARGE: 05/03/2020 DISCHARGE DIAGNOSES: 1. Sepsis. 2. Complicated urinary tract infection due to Escherichia coli. 3. Left ureteric stone. 4. Atrial fibrillation with rapid ventricular response. DISCHARGE MEDICATIONS: 1. Augmentin 875/125 mg orally twice daily for 5 days. 2. Eliquis 5 mg orally twice daily. 3. Aspirin 81 mg orally daily. 4. Fish oil 1000 mg capsule orally daily. 5. Pravastatin 20 mg orally nightly. 6. Diltiazem extended release 240 mg orally daily. 7. Amlodipine 5 mg orally daily. 8. Lactobacillus one tablet orally twice daily for 10 days. HISTORY OF PRESENT ILLNESS AND HOSPITAL COURSE: The patient is an 84-year-old female with past medical history of kidney stones and lymphoma and atrial fibrillation, who presented to the hospital with left flank pain. Imaging studies in the ER revealed left ureteric stone and her UA was positive for infection. The patient's blood work also revealed presence of elevated white count suggesting presence of sepsis. She was started on broad-spectrum IV antibiotics and admitted to the hospital. The patient was seen by Urology and she underwent left ureteroscopy and stent placement. IV antibiotics continued until the patient's sepsis has resolved. Her hospital stay was complicated by atrial fibrillation with rapid ventricular response, which was managed initially with diltiazem drip and transitioned to oral diltiazem. On the day of discharge, the patient is stable and her atrial fibrillation is under control. Job ID: [id number] [facility]
== END 2020-05-03 19:00 | disposition home or self-care (01) | DRG 854 ==
LOC: ERS 20:42 → 2NO 04-28 01:04 → ONC 04-29 20:15 → 2NO 04-30 10:04
PROVIDERS: ADMIT Internal Medicine; ATTEND Internal Medicine
PROC: 0T778DZ Dilation of Left Ureter with Intraluminal Device, Via Natural or Artificial Opening Endoscopic (ICD-10-PCS; principal; 2020-04-28)
DX: A41.51 Sepsis due to Escherichia coli [E. coli] (principal); N20.1 Calculus of ureter; N39.0 Urinary tract infection, site not specified; I10 Essential (primary) hypertension; B96.20 Unspecified Escherichia coli [E. coli] as the cause of diseases classified elsewhere; I48.0 Paroxysmal atrial fibrillation; K59.00 Constipation, unspecified; Z90.49 Acquired absence of other specified parts of digestive tract; Z90.711 Acquired absence of uterus with remaining cervical stump; Z87.442 Personal history of urinary calculi; Z79.01 Long term (current) use of anticoagulants; Z20.828 Contact with and (suspected) exposure to other viral communicable diseases
CPT/HCPCS: 36415; 36416; 71045; 74177; 74420; 80048; 80053; 80202; 81001; 81003; 81015; 83605; 83690; 83735; 83880; 84443; 85025; 87040; 87077; 87086; 87149; 87186; 87635; 93005; 93306; 94640; 96361; 96365; 96374; 96375; J0696; J1940; J2185; J2270; J2405; J2704; J3010; J3370; J3490; J7620; Q9967; U0003

== ENCOUNTER 2021-05-09 00:25 | Inpatient (IN) | payer MEDICARE ==
[2021-05-09] MEDS ORDERED: Nitroglycerin 2% Ointment 1 INCH/1 GM Packet ONE (00:51)
[2021-05-09] MEDS ORDERED: Ondansetron PF 4 MG/2 ML Vial ONE (00:51)
[2021-05-09 01:06] LABS: #Basophils 0.1 thou/uL (0.0-0.2); #Eosinphils 0.5 thou/uL (0.0-0.7); #Lymphocytes 2.6 thou/uL (1.20-3.40); #Monocytes 0.8 thou/uL (0.11-0.59); #Neutrophils 7.7 thou/uL (1.40-6.50); %Basophils 0.5 % (0.0-1.0); %Lymphocytes 22.6 % (21.0-51.0); Hemoglobin 12.2 g/dL (12.0-16.0); Mean Corpuscular HGB CONC 33.3 g/dL (32.0-36.0); Mean Corpuscular Hemoglobin 31.2 pg (27.0-31.0); Mean Corpuscular Volume 93.6 fL (78.0-98.0); Mean Platelet Volume 7.9 fL (7.4-10.4); Platelet Count 183 thou/uL (130-400); RBC Distribution Width 13.5 % (11.5-14.5); White Blood Cell (WBC) Count 11.7 thou/uL (4.8-10.8)
[2021-05-09 01:28] LABS: ALT (SGPT) 24 U/L (8-55); AST (SGOT) 20 U/L (5-34); Albumin 3.7 g/dL (3.4-4.8); Alkaline Phosphatase 86 U/L (40-110); Anion Gap 10 mmol/L (10-20); BUN (Urea Nitrogen) 14 mg/dL (9.8-20.1); Bilirubin, Total 0.5 mg/dL (0.2-1.2); Calc. Creatinine Clearance 0 mL/min (70-130); Calcium 8.6 mg/dL (7.8-10.44); Carbon Dioxide 26 mmol/L (23-31); Chloride 108 mmol/L (98-107); Globulin 2.6 g/dL (2.4-3.5); Glucose 115 mg/dL (83-110); Lipase 67 U/L (8-78); Potassium 3.3 mmol/L (3.5-5.1); Protein, Total 6.3 g/dL (5.8-8.1); Sodium 141 mmol/L (136-145)
[2021-05-09 01:32] LABS: INR-International Normal Ratio 1.1; PTT 32.7 sec (22.9-36.1); Prothrombin Time 13.9 sec (12.0-14.7)
[2021-05-09] MEDS ORDERED: Piperacillin/Tazobactam 3.375 GM VIAL ONE ×2 (02:48→08:52)
[2021-05-09 02:50] LABS: Bacteria/HPF 1+ HPF (None Seen); Bilirubin Negative (Negative); Blood, Urine Negative (Negative); Clarity Clear (Clear); Glucose, Urine (Dipstick) Normal (Negative); Ketone, Urine Negative (Negative); Leukocyte 75 Leu/uL (Negative); Nitrite Negative (Negative); Protein, Urine (Dipstick) Negative (Neg-Trace); RBC/HPF 0-3 HPF (0-3); Specific Gravity, Urine 1.011 (1.002-1.036); Squamous Epithelial 0-3 HPF (0-3); Urobilinogen Normal mg/dL (Less than 2)
[2021-05-09] MEDS ORDERED: Morphine 4 MG/ML VIAL ONE (03:24)
[2021-05-09] MEDS ORDERED: Morphine 4 MG/ML VIAL SLOW IVP PRN (03:34)
[2021-05-09] MEDS ORDERED: Ondansetron ODT 4 MG TAB SL PRN (03:45)
[2021-05-09] MEDS ORDERED: Ondansetron PF 4 MG/2 ML Vial IVP PRN (03:45)
[2021-05-09] MEDS ORDERED: Sodium Chloride 0.9% 1,000 ML IV SCH (03:45)
[2021-05-09] MEDS ORDERED: Piperacillin/Tazobactam 3.375 GM in Sodium Chloride 0.9% 100 ML IVPB SCH (08:00)
[2021-05-09] MEDS ORDERED: Acetaminophen 650 MG Suppository PR PRN (08:11)
[2021-05-09] MEDS: NS 0.9% w/ 40 MEQ KCL 1,000 ML IV SCH ×2 (08:59→23:19)
[2021-05-09 09:03] LABS: SARS-CoV-2 NAA Rapid Test Not Detected (NotDetected)
[2021-05-09 13:49] VITALS: BMI 25.2
[2021-05-09] MEDS ORDERED: Lactated Ringer's 1,000 ML IV SCH (14:00)
[2021-05-09] MEDS: hydrALAZINE 20 MG/ML VIAL SLOW IVP PRN (14:29)
[2021-05-09] MEDS: Lactated Ringer's 1,000 ML IV SCH ×2 (14:59→23:19)
[2021-05-09] MEDS: Scopolamine 1.5 mg/72 hour Patch TD SCH (15:32)
[2021-05-09] MEDS: Polyethylene Glycol OPTH DROP 15 ML BOT EA EYE SCH ×2 (15:33→20:25)
[2021-05-09] MEDS: Acetaminophen 325 MG TAB PO PRN ×2 (15:35→23:56)
[2021-05-09] MEDS ORDERED: Amlodipine 5 MG TAB PO SCH (17:00)
[2021-05-09] MEDS: Lactinex Tablet PO SCH (17:32)
[2021-05-09] MEDS: Flecainide 50 MG TAB PO SCH (20:25)
[2021-05-09] MEDS: Simvastatin 10 MG TAB PO SCH (20:25)
[2021-05-09] MEDS: Diphenoxylate HCl/Atropine Tablet PO SCH ×2 (20:25→20:27)
[2021-05-10] MEDS ORDERED: Metoprolol Tartrate 5 MG/5 ML VIAL IVP SCH ×2 (02:30→03:30)
[2021-05-10 04:55] LABS: #Eosinphils 0.4 thou/uL (0.0-0.7); #Lymphocytes 1.9 thou/uL (1.20-3.40); #Monocytes 0.9 thou/uL (0.11-0.59); #Neutrophils 7.8 thou/uL (1.40-6.50); %Basophils 0.4 % (0.0-1.0); %Eosinophils 3.6 % (0.0-10.0); %Lymphocytes 17.1 % (21.0-51.0); %Monocytes 7.8 % (0.0-10.0); %Neutrophils 71.1 % (42.0-75.0); Hemoglobin 11.2 g/dL (12.0-16.0); Mean Corpuscular Hemoglobin 30.2 pg (27.0-31.0); Mean Corpuscular Volume 94.5 fL (78.0-98.0); Mean Platelet Volume 8.4 fL (7.4-10.4); Platelet Count 188 thou/uL (130-400); RBC Distribution Width 13.8 % (11.5-14.5); Red Blood Cell (RBC) Count 3.69 mill/uL (4.20-5.40)
[2021-05-10 05:49] LABS: ALT (SGPT) 19 U/L (8-55); AST (SGOT) 20 U/L (5-34); Albumin 3.2 g/dL (3.4-4.8); Alkaline Phosphatase 80 U/L (40-110); Anion Gap 9 mmol/L (10-20); BUN (Urea Nitrogen) 6 mg/dL (9.8-20.1); Calc. Creatinine Clearance 61 mL/min (70-130); Carbon Dioxide 24 mmol/L (23-31); Chloride 110 mmol/L (98-107); Globulin 2.4 g/dL (2.4-3.5); Glucose 86 mg/dL (83-110); Potassium 4.2 mmol/L (3.5-5.1); Protein, Total 5.6 g/dL (5.8-8.1); Sodium 139 mmol/L (136-145)
[2021-05-10] MEDS: Polyethylene Glycol OPTH DROP 15 ML BOT EA EYE SCH ×3 (08:10→20:54)
[2021-05-10] MEDS: Aspirin 81 mg Enteric Coated Tablet PO SCH (08:47)
[2021-05-10] MEDS: Amlodipine 5 MG TAB PO SCH (08:51)
[2021-05-10] MEDS: Flecainide 50 MG TAB PO SCH ×2 (08:51→20:53)
[2021-05-10] MEDS: Loratadine 10 MG TAB PO SCH (09:30)
[2021-05-10] MEDS ORDERED: Diltiazem 125 MG in Sodium Chloride 0.9% 100 ML IVPB SCH (10:00)
[2021-05-10] MEDS: Lactated Ringer's 1,000 ML IV SCH ×2 (10:09→20:54)
[2021-05-10] MEDS: Diphenoxylate HCl/Atropine Tablet PO SCH ×2 (10:11→20:54)
[2021-05-10] MEDS: Lactinex Tablet PO SCH ×2 (10:11→16:30)
[2021-05-10] MEDS: Fish Oil 1,000 MG CAP PO SCH (10:12)
[2021-05-10] MEDS ORDERED: Fentanyl 100 MCG/2 ML VIAL ONE ×2 (13:04→16:40)
[2021-05-10] MEDS ORDERED: Bupivacaine PF 0.5% 30 ML VIAL ONE (14:24)
[2021-05-10] MEDS ORDERED: Lidocaine 1% w/Epinephrine 1:100K 20 ML VIAL ONE (14:24)
[2021-05-10] MEDS ORDERED: Levofloxacin 500 mg/D5W 100 ml Premix Bag ONE (14:29)
[2021-05-10] MEDS ORDERED: Labetalol HCl 100 MG/20 ML VIAL ONE (14:41)
[2021-05-10] MEDS ORDERED: Ondansetron PF 4 MG/2 ML Vial ONE (14:41)
[2021-05-10] MEDS ORDERED: Rocuronium Bromide 10 MG/ML (10ML VIAL) ONE (14:41)
[2021-05-10] MEDS ORDERED: Lidocaine 1% PF 5 ML VIAL ONE (14:41)
[2021-05-10] MEDS ORDERED: Dexamethasone 20 MG/5 ML VIAL ONE (14:41)
[2021-05-10] MEDS ORDERED: PROPOFOL 200 MG/20 ML VIAL ONE (14:41)
[2021-05-10] MEDS ORDERED: ePHEDrine 50 MG/ML VIAL ONE (14:41)
[2021-05-10] MEDS ORDERED: Glycopyrrolate 0.2 MG/ML 5 ML SYRINGE ONE (14:41)
[2021-05-10] MEDS ORDERED: Bupivacaine 0.25% HCL 30 ML VIAL ONE (16:04)
[2021-05-10] MEDS ORDERED: traMADol HCl 50 MG TAB PO PRN (16:19)
[2021-05-10] MEDS ORDERED: Promethazine HCl 25 MG/ML VIAL IVPB PRN (16:28)
[2021-05-10] MEDS ORDERED: Ondansetron HCl/PF 4 MG/2 ML Vial IVP PRN (16:28)
[2021-05-10] MEDS ORDERED: Promethazine HCl 25 MG/ML VIAL IM PRN (16:28)
[2021-05-10] MEDS ORDERED: Acetaminophen 500 MG TAB PO SCH (16:30)
[2021-05-10] MEDS ORDERED: SUGAMMADEX SODIUM 200 MG/2 ML VIAL ONE (16:36)
[2021-05-10] MEDS ORDERED: Ibuprofen 200 MG TAB PO PRN (16:41)
[2021-05-10] MEDS: Simvastatin 10 MG TAB PO SCH (20:54)
[2021-05-10] MEDS ORDERED: VANCOMYCIN 1.25 GM/250 ML BAG 1.25 GM in Premix Bag 1 BAG IVPB SCH (21:28)
[2021-05-10] MEDS ORDERED: Sodium Chloride 0.9% 1,000 ML IV SCH (21:30)
[2021-05-10 21:46] LABS: Hemoglobin 11.1 g/dL (12.0-16.0); Mean Corpuscular HGB CONC 32.3 g/dL (32.0-36.0); Mean Corpuscular Hemoglobin 30.9 pg (27.0-31.0); Mean Corpuscular Volume 95.5 fL (78.0-98.0); Mean Platelet Volume 7.9 fL (7.4-10.4); Platelet Count 195 thou/uL (130-400); RBC Distribution Width 14.2 % (11.5-14.5)
[2021-05-10] MEDS ORDERED: Piperacillin/Tazobactam 3.375 GM in Sodium Chloride 0.9% 100 ML IVPB SCH ×2 (22:00→22:45)
[2021-05-10] MEDS ORDERED: Vancomycin 1.5 GRAM/300 ML BAG 1.5 GM in Premix Bag 1 BAG IVPB SCH (22:00)
[2021-05-10 22:07] LABS: Band 7 % (5-11); Lymphocytes 2 % (21-51); MDiff Complete? YES; Monocytes 4 % (0-10); Neutrophil 87 % (42-75)
[2021-05-10 22:08] LABS: Lactic Acid 2.6 mmol/L (0.5-2.2)
[2021-05-10 22:09] LABS: Troponin I Less than 0.010 ng/mL (< 0.028)
[2021-05-10 22:18] LABS: ALT (SGPT) 96 U/L (8-55); AST (SGOT) 224 U/L (5-34); Albumin 3.1 g/dL (3.4-4.8); Alkaline Phosphatase 246 U/L (40-110); Anion Gap 16 mmol/L (10-20); BUN (Urea Nitrogen) 10 mg/dL (9.8-20.1); Bilirubin, Total 2.5 mg/dL (0.2-1.2); Calc. Creatinine Clearance 51 mL/min (70-130); Calcium 8.1 mg/dL (7.8-10.44); Carbon Dioxide 19 mmol/L (23-31); Chloride 109 mmol/L (98-107); Globulin 2.3 g/dL (2.4-3.5); Glucose 147 mg/dL (83-110); Magnesium 1.6 mg/dL (1.6-2.6); Potassium 4.2 mmol/L (3.5-5.1); Protein, Total 5.4 g/dL (5.8-8.1); Sodium 140 mmol/L (136-145)
[2021-05-10] MEDS: Sodium Chloride 0.9% 1,000 ML IV SCH (22:37)
[2021-05-11] MEDS: Lactated Ringer's 1,000 ML IV SCH ×2 (01:49→14:29)
[2021-05-11 05:51] LABS: #Lymphocytes 1.2 thou/uL (1.20-3.40); #Monocytes 0.9 thou/uL (0.11-0.59); #Neutrophils 13.2 thou/uL (1.40-6.50); %Basophils 0.1 % (0.0-1.0); %Eosinophils 0.1 % (0.0-10.0); %Monocytes 5.9 % (0.0-10.0); %Neutrophils 85.9 % (42.0-75.0); Hemoglobin 11.1 g/dL (12.0-16.0); Mean Corpuscular HGB CONC 31.6 g/dL (32.0-36.0); Mean Corpuscular Hemoglobin 30.1 pg (27.0-31.0); Mean Corpuscular Volume 95.2 fL (78.0-98.0); Mean Platelet Volume 8.6 fL (7.4-10.4); Platelet Count 175 thou/uL (130-400); RBC Distribution Width 14.2 % (11.5-14.5); Red Blood Cell (RBC) Count 3.68 mill/uL (4.20-5.40); White Blood Cell (WBC) Count 15.4 thou/uL (4.8-10.8)
[2021-05-11] MEDS: Piperacillin/Tazobactam 3.375 GM in Sodium Chloride 0.9% 100 ML IVPB SCH ×3 (06:00→22:00)
[2021-05-11 06:26] LABS: ALT (SGPT) 106 U/L (8-55); AST (SGOT) 159 U/L (5-34); Albumin 3.3 g/dL (3.4-4.8); Alkaline Phosphatase 254 U/L (40-110); Anion Gap 19 mmol/L (10-20); BUN (Urea Nitrogen) 13 mg/dL (9.8-20.1); Bilirubin, Total 2.2 mg/dL (0.2-1.2); Calc. Creatinine Clearance 51 mL/min (70-130); Calcium 8.1 mg/dL (7.8-10.44); Carbon Dioxide 17 mmol/L (23-31); Chloride 108 mmol/L (98-107); Globulin 2.4 g/dL (2.4-3.5); Glucose 166 mg/dL (83-110); Protein, Total 5.7 g/dL (5.8-8.1); Sodium 140 mmol/L (136-145)
[2021-05-11] MEDS: Lactinex Tablet PO SCH ×2 (10:36→18:53)
[2021-05-11] MEDS: Aspirin 81 mg Enteric Coated Tablet PO SCH (10:36)
[2021-05-11] MEDS: Fish Oil 1,000 MG CAP PO SCH (10:37)
[2021-05-11] MEDS: Flecainide 50 MG TAB PO SCH (10:37)
[2021-05-11] MEDS: Amlodipine 5 MG TAB PO SCH (10:38)
[2021-05-11] MEDS: Diphenoxylate HCl/Atropine Tablet PO SCH ×3 (10:38→20:46)
[2021-05-11] MEDS: Loratadine 10 MG TAB PO SCH (10:38)
[2021-05-11] MEDS: Polyethylene Glycol OPTH DROP 15 ML BOT EA EYE SCH ×3 (10:39→20:46)
[2021-05-11] MEDS: Polyethylene Glycol 3350 17 GM Packet PO SCH (10:42)
[2021-05-11 12:09] LABS: Bilirubin Negative (Negative); Blood, Urine Negative (Negative); Clarity Clear (Clear); Glucose, Urine (Dipstick) Normal (Negative); Ketone, Urine 60 mg/dL (Negative); Leukocyte Negative Leu/uL (Negative); Nitrite Negative (Negative); Protein, Urine (Dipstick) 20 mg/dL (Neg-Trace); Specific Gravity, Urine 1.026 (1.002-1.036); Urobilinogen Normal mg/dL (Less than 2); pH, Urine 5.5 (5.0-9.0)
[2021-05-11 13:50] LABS: Lactic Acid 2.2 mmol/L (0.5-2.2)
[2021-05-11] MEDS: Sodium Chloride 0.9% 1,000 ML IV SCH (15:15)
[2021-05-11] MEDS ORDERED: DOBUTamine 500 mg/250 ml 250 ML IVPB SCH (18:00)
[2021-05-11] MEDS ORDERED: Ondansetron PF 4 MG/2 ML Vial IVP PRN (18:18)
[2021-05-11] MEDS: Simvastatin 10 MG TAB PO SCH (20:45)
[2021-05-11] MEDS ORDERED: Vancomycin 1 GM in Premix Bag 1 BAG IVPB SCH (21:00)
[2021-05-12 05:08] LABS: Hemoglobin 9.8 g/dL (12.0-16.0); Mean Corpuscular HGB CONC 32.1 g/dL (32.0-36.0); Mean Corpuscular Hemoglobin 30.6 pg (27.0-31.0); Mean Corpuscular Volume 95.2 fL (78.0-98.0); Mean Platelet Volume 8.6 fL (7.4-10.4); Platelet Count 169 thou/uL (130-400); RBC Distribution Width 14.7 % (11.5-14.5); Red Blood Cell (RBC) Count 3.19 mill/uL (4.20-5.40); White Blood Cell (WBC) Count 20.4 thou/uL (4.8-10.8)
[2021-05-12 05:23] LABS: ALT (SGPT) 76 U/L (8-55); AST (SGOT) 72 U/L (5-34); Albumin 3.2 g/dL (3.4-4.8); Alkaline Phosphatase 164 U/L (40-110); Anion Gap 12 mmol/L (10-20); BUN (Urea Nitrogen) 23 mg/dL (9.8-20.1); Bilirubin, Total 1.4 mg/dL (0.2-1.2); Calc. Creatinine Clearance 40 mL/min (70-130); Calcium 7.9 mg/dL (7.8-10.44); Carbon Dioxide 23 mmol/L (23-31); Chloride 108 mmol/L (98-107); Globulin 2.3 g/dL (2.4-3.5); Glucose 127 mg/dL (83-110); Potassium 3.8 mmol/L (3.5-5.1); Protein, Total 5.5 g/dL (5.8-8.1); Sodium 139 mmol/L (136-145)
[2021-05-12] MEDS: Piperacillin/Tazobactam 3.375 GM in Sodium Chloride 0.9% 100 ML IVPB SCH ×3 (05:45→21:38)
[2021-05-12 05:48] LABS: Band 12 % (5-11); Lymphocytes 14 % (21-51); MDiff Complete? YES; Monocytes 7 % (0-10); Neutrophil 67 % (42-75)
[2021-05-12] MEDS: Fish Oil 1,000 MG CAP PO SCH (09:32)
[2021-05-12] MEDS: Lactinex Tablet PO SCH ×2 (09:32→15:12)
[2021-05-12] MEDS: Diphenoxylate HCl/Atropine Tablet PO SCH ×2 (09:32→20:37)
[2021-05-12] MEDS: Amlodipine 5 MG TAB PO SCH (09:32)
[2021-05-12] MEDS: Loratadine 10 MG TAB PO SCH (09:32)
[2021-05-12] MEDS: Polyethylene Glycol 3350 17 GM Packet PO SCH (09:33)
[2021-05-12] MEDS: Amoxicillin/Potassium Clav 500 MG TAB PO SCH ×2 (09:34→20:37)
[2021-05-12] MEDS: Polyethylene Glycol OPTH DROP 15 ML BOT EA EYE SCH ×3 (09:34→20:37)
[2021-05-12] MEDS: Aspirin 81 mg Enteric Coated Tablet PO SCH (09:34)
[2021-05-12] MEDS: Scopolamine 1.5 mg/72 hour Patch TD SCH (15:14)
[2021-05-12] MEDS: Enoxaparin Sodium 40 MG/0.4 ML SYRINGE SC SCH (20:36)
[2021-05-12] MEDS: Flecainide 50 MG TAB PO SCH (20:36)
[2021-05-12] MEDS: Simvastatin 10 MG TAB PO SCH (20:36)
[2021-05-13 05:10] LABS: #Eosinphils 0.3 thou/uL (0.0-0.7); #Lymphocytes 2.6 thou/uL (1.20-3.40); #Monocytes 1.4 thou/uL (0.11-0.59); #Neutrophils 12.9 thou/uL (1.40-6.50); %Basophils 0.1 % (0.0-1.0); %Eosinophils 1.7 % (0.0-10.0); %Lymphocytes 15.3 % (21.0-51.0); %Monocytes 8.3 % (0.0-10.0); %Neutrophils 74.7 % (42.0-75.0); Hemoglobin 9.9 g/dL (12.0-16.0); Mean Corpuscular HGB CONC 33.8 g/dL (32.0-36.0); Mean Corpuscular Hemoglobin 32.5 pg (27.0-31.0); Mean Corpuscular Volume 96.4 fL (78.0-98.0); Mean Platelet Volume 8.3 fL (7.4-10.4); Platelet Count 193 thou/uL (130-400); RBC Distribution Width 14.9 % (11.5-14.5); Red Blood Cell (RBC) Count 3.04 mill/uL (4.20-5.40); White Blood Cell (WBC) Count 17.3 thou/uL (4.8-10.8)
[2021-05-13 05:33] LABS: ALT (SGPT) 62 U/L (8-55); AST (SGOT) 49 U/L (5-34); Albumin 3.1 g/dL (3.4-4.8); Alkaline Phosphatase 138 U/L (40-110); Anion Gap 9 mmol/L (10-20); BUN (Urea Nitrogen) 14 mg/dL (9.8-20.1); Bilirubin, Total 0.8 mg/dL (0.2-1.2); Calc. Creatinine Clearance 55 mL/min (70-130); Calcium 7.9 mg/dL (7.8-10.44); Carbon Dioxide 25 mmol/L (23-31); Chloride 112 mmol/L (98-107); Globulin 2.4 g/dL (2.4-3.5); Glucose 103 mg/dL (83-110); Potassium 3.9 mmol/L (3.5-5.1); Protein, Total 5.5 g/dL (5.8-8.1); Sodium 142 mmol/L (136-145)
[2021-05-13] MEDS: Piperacillin/Tazobactam 3.375 GM in Sodium Chloride 0.9% 100 ML IVPB SCH (05:56)
[2021-05-13 07:22] VITALS: TEMP 98.5
[2021-05-13] MEDS: Amoxicillin/Potassium Clav 500 MG TAB PO SCH (08:26)
[2021-05-13] MEDS: Enoxaparin Sodium 40 MG/0.4 ML SYRINGE SC SCH (08:26)
[2021-05-13] MEDS: Lactinex Tablet PO SCH (08:26)
[2021-05-13] MEDS: Aspirin 81 mg Enteric Coated Tablet PO SCH (08:26)
[2021-05-13] MEDS: Amlodipine 10 MG TAB PO SCH ×2 (08:26→09:43)
[2021-05-13] MEDS: Diphenoxylate HCl/Atropine Tablet PO SCH (08:26)
[2021-05-13] MEDS: Flecainide 50 MG TAB PO SCH (08:27)
[2021-05-13] MEDS: Loratadine 10 MG TAB PO SCH (08:27)
[2021-05-13] MEDS: Polyethylene Glycol OPTH DROP 15 ML BOT EA EYE SCH (08:27)
[2021-05-13] MEDS: Fish Oil 1,000 MG CAP PO SCH (08:27)
[2021-05-13] MEDS: hydrALAZINE 20 MG/ML VIAL SLOW IVP PRN (08:27)
[2021-05-13] MEDS: Polyethylene Glycol 3350 17 GM Packet PO SCH (08:29)
[2021-05-13 12:12] VITALS: BP 153/69
== END 2021-05-13 14:30 | disposition home or self-care (01) | DRG 414 ==
LOC: ERS 00:25 → ERHOLD 02:11 → 2NO 02:30 → OBSVTOIN 05-10 14:25
PROVIDERS: ADMIT Surgery; ATTEND Internal Medicine
PROC: 0FT40ZZ Resection of Gallbladder, Open Approach (ICD-10-PCS; principal; 2021-05-10)
PROC: 0FJ44ZZ Inspection of Gallbladder, Percutaneous Endoscopic Approach (ICD-10-PCS; 2021-05-10)
DX: K80.00 Calculus of gallbladder with acute cholecystitis without obstruction (principal); A41.9 Sepsis, unspecified organism; N39.0 Urinary tract infection, site not specified; I10 Essential (primary) hypertension; Z51.5 Encounter for palliative care; I48.0 Paroxysmal atrial fibrillation; I16.0 Hypertensive urgency; E87.6 Hypokalemia; E78.5 Hyperlipidemia, unspecified; I44.0 Atrioventricular block, first degree; I49.5 Sick sinus syndrome; Z79.01 Long term (current) use of anticoagulants; Z79.899 Other long term (current) drug therapy; Z90.49 Acquired absence of other specified parts of digestive tract; Z90.710 Acquired absence of both cervix and uterus
CPT/HCPCS: 36415; 71045; 74018; 74181; 76705; 80053; 81003; 81015; 83605; 83690; 83735; 84484; 85025; 85610; 85730; 87040; 87077; 87086; 87186; 88304; 93005; 93010; J0360; J1100; J1250; J1650; J1956; J2270; J2405; J2543; J2704; J3010; J3370; J3480; J3490; J7050; J7120; S0020; U0002

== ENCOUNTER 2025-04-06 20:36 | Inpatient (IN) | payer MEDICARE ==
[~2025-04-06 20:36] MED LIST changes: +Iopamidol 370 76% 100 ML VIAL ONE; -Iopamidol-370 76% 500 ML 1 ML ONE; +Iopamidol-370 76% 500 ML MDV (1 ML CHARGE) ONE
[2025-04-06 21:05] LABS: #Basophils 0.04 10x3/uL (0.0-0.2); #Eosinophils 0.40 10x3/uL (0.0-0.7); #Monocytes 0.76 10x3/uL (0.11-0.59); #Neutrophils 4.69 10x3/uL (1.40-6.50); %Basophils 0.5 % (0.0-1.0); %Eosinophils 4.8 % (0.0-10.0); %Lymphocytes 28.5 % (21.0-51.0); %Monocytes 9.2 % (0.0-10.0); %Neutrophils 56.8 % (42.0-75.0); Hematocrit 29.0 % (36.0-47.0); Hemoglobin 9.1 g/dL (12.0-16.0); Mean Corpuscular Hemoglobin 31.9 pg (27.0-31.0); Mean Corpuscular Volume 101.8 fL (78.0-98.0); Platelet Count 145 10x3/uL (130-400); Red Blood Cell (RBC) Count 2.85 mill/uL (4.20-5.40); White Blood Cell (WBC) Count 8.26 10x3/uL (4.8-10.8)
[2025-04-06 21:19] LABS: INR-International Normal Ratio 1.2; PTT 34.5 sec (22.9-36.1); Prothrombin Time 15.1 sec (12.0-14.7)
[2025-04-06 21:22] LABS: ALT (SGPT) 21 U/L (Less than 34); AST (SGOT) 26 U/L (11-34); Albumin 3.2 g/dL (3.1-4.5); Alkaline Phosphatase 68 U/L (40-110); Anion Gap 13 mmol/L (10-20); BUN (Urea Nitrogen) 23 mg/dL (9.8-20.1); Bilirubin, Total 0.3 mg/dL (0.3-1.2); Calc. Creatinine Clearance 0 mL/min (70-130); Calcium 7.9 mg/dL (7.8-10.44); Carbon Dioxide 22 mmol/L (23-31); Chloride 108 mmol/L (98-107); Globulin 2.3 g/dL (2.4-3.5); Glucose 104 mg/dL (83-110); Potassium 3.9 mmol/L (3.5-5.1); Sodium 139 mmol/L (136-145)
[2025-04-06] MEDS ORDERED: Heparin 10,000 UNITS/ 10 ML VIAL ONE (21:32)
[2025-04-06] MEDS ORDERED: Sevoflurane 250 ML INH ANEST BOTTLE ONE (21:57)
[2025-04-06] MEDS ORDERED: Lidocaine 1% PF 5 ML VIAL ONE (22:05)
[2025-04-06] MEDS ORDERED: Rocuronium Bromide 10 MG/ML (10ML VIAL) ONE (22:05)
[2025-04-06] MEDS ORDERED: Ondansetron PF 4 MG/2 ML Vial ONE (22:05)
[2025-04-06] MEDS ORDERED: fentaNYL PF 100 MCG/2 ML SYRINGE ONE (22:12)
[2025-04-06] MEDS ORDERED: hydrALAZINE 20 MG/ML VIAL SLOW IVP PRN (23:53)
[2025-04-06] MEDS: hydrALAZINE 20 MG/ML VIAL SLOW IVP PRN (23:55)
[2025-04-07] MEDS: niCARdipine 25 MG in Sodium Chloride 0.9% 250 ML 250 ML IVPB PRN (00:05)
[2025-04-07 00:06] LABS: Actual Bicarbonate (HCO3a) 16.3 mEq/L (22-28); Base Excess (BEa) -6.4 mEq/L (-2.0 to +3.0); Calcium, Ionized (arterial) 1.01 mmol/L (1.12-1.30); Hematocrit-ABG 31 % (36.0-47.0); Hemoglobin (Hb) 10.6 g/dL (12.0-16.0); O2 Tension (PaO2), arterial 452.7 mmHg (> 60.0); Potassium - ABG Lab 3.35 mmol/L (3.70-5.30); pH, Arterial 7.441 (7.35-7.45)
[2025-04-07 00:08] LABS: CO2 Tension 24.5 mmHg (35.0-45.0); Puncture Site LINE
[2025-04-07 00:09] LABS: ALV-art Gradient 229.675 mmHg (0-20)
[2025-04-07 00:42] VITALS: BMI 24.5
[2025-04-07] MEDS ORDERED: Propofol BOLUS 1,000 MG/100 ML VIAL IV PRN (01:45)
[2025-04-07] MEDS ORDERED: DISCONTINUE PREVIOUS NARCOTIC PAIN MEDICATIONS AND BENZODIAZEPINES FS SCH (01:45)
[2025-04-07] MEDS ORDERED: Fentanyl BOLUS 100 ML IVPB PRN (01:45)
[2025-04-07] MEDS: Ventilator Sedation Protocol 1 EACH FS ONE (02:40)
[2025-04-07 05:10] LABS: #Basophils Less than 0.03 10x3/uL (0.0-0.2); #Eosinophils Less than 0.03 10x3/uL (0.0-0.7); #Monocytes 0.28 10x3/uL (0.11-0.59); #Neutrophils 11.79 10x3/uL (1.40-6.50); %Basophils 0.2 % (0.0-1.0); %Eosinophils 0.0 % (0.0-10.0); %Lymphocytes 5.2 % (21.0-51.0); %Monocytes 2.2 % (0.0-10.0); %Neutrophils 91.6 % (42.0-75.0); Hematocrit 29.2 % (36.0-47.0); Hemoglobin 9.7 g/dL (12.0-16.0); Mean Corpuscular Hemoglobin 33.4 pg (27.0-31.0); Mean Corpuscular Volume 100.7 fL (78.0-98.0); Platelet Count 168 10x3/uL (130-400); Red Blood Cell (RBC) Count 2.90 mill/uL (4.20-5.40); White Blood Cell (WBC) Count 12.86 10x3/uL (4.8-10.8)
[2025-04-07 05:39] LABS: Anion Gap 16 mmol/L (10-20); BUN (Urea Nitrogen) 19 mg/dL (9.8-20.1); Calc. Creatinine Clearance 48 mL/min (70-130); Calcium 7.2 mg/dL (7.8-10.44); Carbon Dioxide 16 mmol/L (23-31); Cardiac Risk 2.4 (Less than 4.5); Chloride 114 mmol/L (98-107); Cholesterol 106 mg/dl (< 200 Desired); Glucose 255 mg/dL (83-110); HDL Cholesterol 44 mg/dL (>60 Neg Risk); LDL Cholesterol, Calculated 48 mg/dL; Potassium 2.9 mmol/L (3.5-5.1); Sodium 143 mmol/L (136-145); Triglycerides 69 mg/dL (Less than 150)
[2025-04-07 06:54] LABS: Magnesium 1.3 mg/dL (1.6-2.6)
[2025-04-07 07:44] LABS: Actual Bicarbonate (HCO3a) 18.5 mEq/L (22-28); Base Excess (BEa) -4.4 mEq/L (-2.0 to +3.0); CO2 Tension 27.0 mmHg (35.0-45.0); Calcium, Ionized (arterial) 0.99 mmol/L (1.12-1.30); Hematocrit-ABG 30 % (36.0-47.0); Hemoglobin (Hb) 10.2 g/dL (12.0-16.0); O2 Tension (PaO2), arterial 140.8 mmHg (> 60.0); Potassium - ABG Lab 3.44 mmol/L (3.70-5.30); pH, Arterial 7.453 (7.35-7.45)
[2025-04-07] MEDS: Magnesium Sulfate In Water 4 GM in Premix 1 BAG IVPB SCH (07:50)
[2025-04-07] MEDS: Furosemide 40 MG (4 mL) VIAL SLOW IVP SCH (09:05)
[2025-04-07 12:57] VITALS: BMI 24.2
[2025-04-07] MEDS: DC Sedation Protocol FS ONE (17:40)
[2025-04-07 18:36] LABS: Potassium 5.8 mmol/L (3.5-5.1)
[2025-04-07] MEDS: Simvastatin 10 MG TAB PO SCH (20:50)
[2025-04-07] MEDS: Metoprolol Succinate XL 25 MG ER.TAB PO SCH (20:50)
[2025-04-08 04:36] LABS: #Basophils Less than 0.03 10x3/uL (0.0-0.2); #Eosinophils Less than 0.03 10x3/uL (0.0-0.7); #Monocytes 1.65 10x3/uL (0.11-0.59); #Neutrophils 14.60 10x3/uL (1.40-6.50); %Basophils 0.1 % (0.0-1.0); %Eosinophils 0.1 % (0.0-10.0); %Lymphocytes 11.2 % (21.0-51.0); %Monocytes 8.9 % (0.0-10.0); %Neutrophils 79.1 % (42.0-75.0); Hematocrit 25.2 % (36.0-47.0); Hemoglobin 8.0 g/dL (12.0-16.0); Mean Corpuscular Hemoglobin 32.4 pg (27.0-31.0); Mean Corpuscular Volume 102.0 fL (78.0-98.0); Platelet Count 162 10x3/uL (130-400); Red Blood Cell (RBC) Count 2.47 mill/uL (4.20-5.40); White Blood Cell (WBC) Count 18.49 10x3/uL (4.8-10.8)
[2025-04-08 05:53] LABS: Anion Gap 12 mmol/L (10-20); BUN (Urea Nitrogen) 16 mg/dL (9.8-20.1); Calc. Creatinine Clearance 39 mL/min (70-130); Calcium 7.3 mg/dL (7.8-10.44); Carbon Dioxide 21 mmol/L (23-31); Chloride 113 mmol/L (98-107); Glucose 99 mg/dL (83-110); Magnesium 2.5 mg/dL (1.6-2.6); Potassium 5.0 mmol/L (3.5-5.1); Sodium 141 mmol/L (136-145)
[2025-04-08] MEDS: Apixaban 2.5 MG TAB PO SCH (20:25)
[2025-04-09 05:14] LABS: Iron 34 ug/dL (50-170); Iron Binding Capacity, Total 281 mcg/dL (265-497)
[2025-04-09] MEDS: Apixaban 5 MG TAB PO SCH (08:44)
[2025-04-09] MEDS: Furosemide 20 MG (2 mL) VIAL SLOW IVP SCH (08:44)
[2025-04-09] MEDS: Sodium Ferric Gluconate 250 MG in Sodium Chloride 0.9% 250 ML 250 ML IVPB SCH (09:29)
[2025-04-09 10:28] LABS: #Basophils 0.06 10x3/uL (0.0-0.2); #Eosinophils 0.36 10x3/uL (0.0-0.7); #Monocytes 1.15 10x3/uL (0.11-0.59); #Neutrophils 11.35 10x3/uL (1.40-6.50); %Basophils 0.4 % (0.0-1.0); %Eosinophils 2.4 % (0.0-10.0); %Lymphocytes 14.2 % (21.0-51.0); %Monocytes 7.6 % (0.0-10.0); %Neutrophils 74.6 % (42.0-75.0); Hematocrit 26.4 % (36.0-47.0); Hemoglobin 8.2 g/dL (12.0-16.0); Mean Corpuscular Hemoglobin 32.2 pg (27.0-31.0); Mean Corpuscular Volume 103.5 fL (78.0-98.0); Platelet Count 156 10x3/uL (130-400); Red Blood Cell (RBC) Count 2.55 mill/uL (4.20-5.40); White Blood Cell (WBC) Count 15.20 10x3/uL (4.8-10.8)
[2025-04-09 11:58] VITALS: BP 178/73; TEMP 97.8
[2025-04-10] MEDS ORDERED: Furosemide 20 MG TAB PO SCH (09:00)
== END 2025-04-09 13:41 | disposition home health service (06) | DRG 23 ==
LOC: ERS 20:36 → CCL 21:53 → CCU 22:03 → 2SE 04-07 18:35
PROVIDERS: ADMIT Neurological Surgery; ATTEND Hospitalist
PROC: 03CG3ZZ Extirpation of Matter from Intracranial Artery, Percutaneous Approach (ICD-10-PCS; principal; 2025-04-06)
PROC: 4A023N7 Measurement of Cardiac Sampling and Pressure, Left Heart, Percutaneous Approach (ICD-10-PCS; 2025-04-06)
PROC: B2151ZZ Fluoroscopy of Left Heart using Low Osmolar Contrast (ICD-10-PCS; 2025-04-06)
PROC: 4A033R1 Measurement of Arterial Saturation, Peripheral, Percutaneous Approach (ICD-10-PCS; 2025-04-06)
PROC: 0T9B70Z Drainage of Bladder with Drainage Device, Via Natural or Artificial Opening (ICD-10-PCS; 2025-04-06)
PROC: 5A1935Z Respiratory Ventilation, Less than 24 Consecutive Hours (ICD-10-PCS; 2025-04-06)
PROC: 0BH17EZ Insertion of Endotracheal Airway into Trachea, Via Natural or Artificial Opening (ICD-10-PCS; 2025-04-06)
DX: I63.312 Cerebral infarction due to thrombosis of left middle cerebral artery (principal); J81.0 Acute pulmonary edema; J96.01 Acute respiratory failure with hypoxia; G81.94 Hemiplegia, unspecified affecting left nondominant side; I16.1 Hypertensive emergency; E87.20 Acidosis, unspecified; E87.8 Other disorders of electrolyte and fluid balance, not elsewhere classified; R47.81 Slurred speech; I48.0 Paroxysmal atrial fibrillation; E87.70 Fluid overload, unspecified; D64.9 Anemia, unspecified; Z85.72 Personal history of non-Hodgkin lymphomas; Z79.01 Long term (current) use of anticoagulants; Z87.442 Personal history of urinary calculi; Z90.710 Acquired absence of both cervix and uterus; Z90.49 Acquired absence of other specified parts of digestive tract
CPT/HCPCS: 36415; 36416; 61645; 70450; 70496; 70498; 71045; 80048; 80053; 80061; 82310; 82728; 82805; 83540; 83550; 83735; 83880; 84484; 85025; 85610; 85730; 93005; 94002; 94003; 94760; C1769; C1887; C1894; J0360; J1100; J1644; J1940; J2405; J2916; J3475; J3480; J7030; J7050; Q9967

== ENCOUNTER 2025-05-01 10:46 | Emergency (ER) | payer MEDICARE ==
[2025-05-01 11:23] LABS: #Basophils 0.05 10x3/uL (0.0-0.2); #Eosinophils 0.26 10x3/uL (0.0-0.7); #Monocytes 0.72 10x3/uL (0.11-0.59); #Neutrophils 5.42 10x3/uL (1.40-6.50); %Basophils 0.6 % (0.0-1.0); %Eosinophils 3.1 % (0.0-10.0); %Lymphocytes 23.9 % (21.0-51.0); %Monocytes 8.5 % (0.0-10.0); %Neutrophils 63.5 % (42.0-75.0); Hematocrit 36.0 % (36.0-47.0); Hemoglobin 11.3 g/dL (12.0-16.0); Mean Corpuscular Hemoglobin 32.6 pg (27.0-31.0); Mean Corpuscular Volume 103.7 fL (78.0-98.0); Platelet Count 192 10x3/uL (130-400); Red Blood Cell (RBC) Count 3.47 mill/uL (4.20-5.40); White Blood Cell (WBC) Count 8.52 10x3/uL (4.8-10.8)
[2025-05-01 11:47] LABS: ALT (SGPT) 46 U/L (Less than 34); AST (SGOT) 80 U/L (11-34); Albumin 4.1 g/dL (3.1-4.5); Alkaline Phosphatase 69 U/L (40-110); Anion Gap 16 mmol/L (10-20); BUN (Urea Nitrogen) 33 mg/dL (9.8-20.1); Bilirubin, Total 0.6 mg/dL (0.3-1.2); Calc. Creatinine Clearance 0 mL/min (70-130); Calcium 9.1 mg/dL (7.8-10.44); Carbon Dioxide 22 mmol/L (23-31); Chloride 104 mmol/L (98-107); Globulin 3.0 g/dL (2.4-3.5); Glucose 89 mg/dL (83-110); Potassium 4.6 mmol/L (3.5-5.1); Sodium 137 mmol/L (136-145)
[2025-05-01 11:54] LABS: INR-International Normal Ratio 1.4; PTT 34.2 sec (22.9-36.1); Prothrombin Time 17.3 sec (12.0-14.7)
== END 2025-05-01 16:57 | disposition home or self-care (01) ==
LOC: ERS 10:46
DX: N17.9 Acute kidney failure, unspecified (principal); R53.1 Weakness; K62.5 Hemorrhage of anus and rectum; R79.89 Other specified abnormal findings of blood chemistry; D64.9 Anemia, unspecified; R29.700 NIHSS score 0; I48.91 Unspecified atrial fibrillation; I12.9 Hypertensive chronic kidney disease with stage 1 through stage 4 chronic kidney disease, or unspecified chronic kidney disease; N18.9 Chronic kidney disease, unspecified; Z86.73 Personal history of transient ischemic attack (TIA), and cerebral infarction without residual deficits; Z86.16 Personal history of COVID-19; Z79.01 Long term (current) use of anticoagulants; Z79.899 Other long term (current) drug therapy
CPT/HCPCS: 36415; 70450; 71045; 80053; 84484; 85025; 85610; 85730; 86850; 86900; 86901; 93005; 94760